=== PATIENT | male | born 1970 ===

== ENCOUNTER 2017-05-23 09:09 | Emergency (ER) | payer OTHER ==
--- NOTE | 2017-05-26 09:47 | ER ---
ADMIT: 05/23/2017 RM/LOC: ER [facility] MR#: [id number] [address] [address] BLANQUITA MARQUEZ [place] [address] Emergency Room Report SEX: M AGE: 46 : 1970 DATE: 05/23/2017 ADDENDUM: A 46-year-old male, coming from the [place] [facility] with abdominal pain and low-grade fever. Exam, kind of a right upper quadrant pain. However, ultrasound, CT scan was negative. His CBC and chemistry were negative. He was not septic at this time. He had gotten Toradol. He is much improved. He is to be observed and follow up through the [place] [facility]. CONDITION ON DISCHARGE: Improved. Fito Medel MD/ dominique JOB #: [id number] CC: Fito Medel MD, Attending Physician [facility], Family Physician
== END 2017-05-23 13:00 | disposition home or self-care (01) ==
LOC: ER 09:09
DX: R10.11 Right upper quadrant pain (principal); R50.9 Fever, unspecified; K21.9 Gastro-esophageal reflux disease without esophagitis; Z79.899 Other long term (current) drug therapy